=== PATIENT | female | born 1945 | race Caucasian/White ===

== ENCOUNTER 2019-05-05 21:57 | Emergency (ER) | payer MEDICARE, MEDICAID ==
[~2019-05-05] VITALS: Ht 152.4 cm; Wt 61.2 kg
[2019-05-06 00:30] VITALS: BP 153/74
[2019-05-06 01:02] LABS: BASOPHILS % 0.8 % (0.0-2.0); EOSINOPHILS % 0.6 % (0.0-5.0); HEMOGLOBIN. 9.6 g/dL (12.0-16.0); LYMPHOCYTES % 29.5 % (20.0-50.0); MEAN CORPUSCULAR HEMOGLOBIN 22.7 pg (28.0-32.0); MEAN PLATELET VOLUME 9.1 fl (7.4-10.4); MONOCYTES % 8.1 % (2.0-8.0); PLATELET 354 x1000/uL (130-400); RED BLOOD CELL COUNT 4.23 mill/uL (4.2-5.4); RED CELL DISTRIBUTION WIDTH 18.4 % (11.6-14.6)
[2019-05-06 01:09] LABS: CHLORIDE 106 mEq/L (98-107)
== END 2019-05-06 02:46 | disposition home or self-care (01) ==
LOC: ER 21:57
DX: I10 Essential (primary) hypertension (principal); E11.9 Type 2 diabetes mellitus without complications; E78.00 Pure hypercholesterolemia, unspecified
CPT/HCPCS: 36415; 80048; 84484; 93005; 99284